=== PATIENT | female | born 1960 | race Caucasian/White ===

== ENCOUNTER 2022-07-16 07:30 | Outpatient (RCR) | payer OTHER ==
[~2022-07-16] VITALS: Ht 165.1 cm; Wt 102.6 kg
[2022-07-16] VITALS (11 sets, daily range): BP systolic 102–124; BP diastolic 57–85; PULSE 82–95; TEMP 98.1–98.8
[~2022-07-16 07:30] MED LIST: PRINZIDE 12.5 M1 TAB PO; [UNRECOGNIZED DRUG - CODE] PO
[2022-07-16] MEDS ORDERED: COZAAR100 MG PO (11:15)
[2022-07-16] MEDS ORDERED: CONCERTA54 MG PO (11:16)
[2022-07-16] MEDS ORDERED: LIPITOR 10MG10 MG PO (11:16)
--- NOTE | 2022-07-16 15:40 | NUR ---
Pt tolerated transfusions without issue. She is steady on feet. She is escorted out to pt entrance with steady gait. IV site was wrapped with coban.
== END 2022-07-16 15:40 | disposition home or self-care (01) ==
LOC: EUO 07:30
DX: D64.9 Anemia, unspecified (principal)
CPT/HCPCS: J7050; P9016

== ENCOUNTER → 2022-07-22 | Outpatient (CLI) | payer OTHER ==
[~2022-07-22] MED LIST changes: +CONCERTA54 MG PO; +COZAAR100 MG PO; +LIPITOR 10MG10 MG PO
== END ==
LOC: COL.RAD 11:23
DX: K44.9 Diaphragmatic hernia without obstruction or gangrene (principal); K76.0 Fatty (change of) liver, not elsewhere classified; K57.90 Diverticulosis of intestine, part unspecified, without perforation or abscess without bleeding
CPT/HCPCS: J7030; Q9967

== ENCOUNTER 2023-01-26 05:42 | Day surgery (SDC) | payer OTHER ==
[~2023-01-26] VITALS: Ht 165.1 cm; Wt 97.8 kg
[2023-01-26 06:09] VITALS: BP 111/61; PULSE 99; TEMP 97.1
[2023-01-26] MEDS ORDERED: HCTZ12.5TAB PO (06:16)
[2023-01-26] MEDS ORDERED: PROTONIX 40MG T40 MG PO (06:16)
[2023-01-26] MEDS ORDERED: CONCERTA54 MG PO (06:17)
--- NOTE | 2023-01-26 07:30 | NUR ---
The patient has been taken back to the operating room via cart at this time. The patient's chart was sent with her to surgery. The patient's belongings will be taken to the recovery room and then transferred with the patient to the 3rd floor post operatively.
--- NOTE | 2023-01-26 15:14 | NUR ---
WHILE PT WAS USING THE BATHROOM, SHE STARTED TO HAVE BLEEDING FROM A LAP SITE. THE SITE WAS CLEANED , AND NEW BANDAID APPLIED. SITE APPEARED TO HAVE EDGES WELL APPROXIMATED. PT HAS MINIMAL PAIN FROM SITE.
[2023-01-26 15:47] VITALS: BP 144/79; PULSE 92; TEMP 97.8
[2023-01-26 19:14] VITALS: BP 141/66; PULSE 108; TEMP 98.8
--- NOTE | 2023-01-26 21:25 | NUR ---
Patient assessed at this time, see shift assessment, rates her pain at 4/10, scheduled tynenol given, has 5 lap sites with bandaid CDI, denies nausea, denies further needs, call light and personal items within reach, will continue to monitor.
[2023-01-27 00:03] VITALS: BP 135/73; PULSE 80; TEMP 98.1
[2023-01-27 04:08] VITALS: BP 125/72; PULSE 70; TEMP 98.1
[2023-01-27 07:16] VITALS: BP 126/69; PULSE 71; TEMP 98.4
--- NOTE | 2023-01-27 08:00 | NUR ---
PATIENT IS A&O AND SITTING UP IN BED WATCHING TV. VSS. PATIENT REPORTS MILD-MOD ABD DISCOMFORT BUT STATES PAIN IS BETTER AFTER PAIN PILL AROUND 0600. ABD IS ROUND, SOFT AND WITH POSITIVE BOWL SOUNDS. ABD LAP SITES X5 ARE CD&I WITH BANDAID. PATIENT REPORTS SHE IS PASSING SOME GAS. TOLERATING FULL LIQUID DIET. NO C/O N/V. LEFT HAND IV TO INT. AM MEDS GIVEN. HEAD TO TOE ASSESSMENT COMPLETE. PATIENT THINKS SHE WILL LIKELY DISCHARGE TODAY. NO OTHER NEEDS AT THIS TIME. CALL LIGHT IN REACH.
--- NOTE | 2023-01-27 09:44 | NUR ---
Initial visit; Patient doing well. She and Butadiene Converter Operator talked of her growing up in a specific church so Butadiene Converter Operator mentioned that she might visit her [employer] over Easter and hopefully get acquainted with some people and find a niche for herself there. She thanked Butadiene Converter Operator.
[2023-01-27] MEDS ORDERED: TYLENOL 500MG500 MG PO (11:45)
[2023-01-27] MEDS ORDERED: ROXICODONE 55 MG/TAB PO (11:45)
[2023-01-27 12:12] VITALS: BP 105/66; PULSE 81; TEMP 98.3
--- NOTE | 2023-01-27 13:00 | NUR ---
PATIENT'S RIDE IS HERE. GAVE DISCHARGE INSTRUCTIONS, E-SCRIPTS SENT, AND DISCUSSED F/U APT. ANSWERED QUESTIONS/CONCERNS. DC'D LEFT HAND IV AND COVERED SITE WITH GAUZE & COBAN. PATIENT IS DRESSED, PACKED AND ESCORTED OUT VIA WC TO PERSONAL VEHICLE WITH SON.
== END 2023-01-27 13:00 | disposition home or self-care (01) ==
LOC: SDCO 05:42 → SURG 14:26 → SDCO 01-27 13:00
DX: K44.9 Diaphragmatic hernia without obstruction or gangrene (principal); D50.0 Iron deficiency anemia secondary to blood loss (chronic); K21.9 Gastro-esophageal reflux disease without esophagitis; Z79.899 Other long term (current) drug therapy
CPT/HCPCS: OP; C1781; J0690; J1100; J1170; J1885; J2405; J2704; J3010; J7120